=== PATIENT | female | born 1955 | race Caucasian/White ===

== ENCOUNTER 2017-06-17 14:19 | Emergency (ER) | payer OTHER, SELFPAY ==
[2017-06-17 14:19] VITALS: BP 125/75; PULSE 62; RESP 16; TEMP 36.4; O2SAT 98; BMI 29.2
--- NOTE | 2017-06-17 14:44 | CT_ITS ---
STUDY: CT ABDOMEN AND PELVIS WITHOUT CONTRAST REASON FOR EXAM: Female, 61 years old. Suprapubic pain. History of total abdominal hysterectomy and appendectomy. RADIATION DOSAGE (If Supplied By Facility): CTDIvol = ( 12.35 ) mGy, DLP = ( 623.10 ) mGycm TECHNIQUE: Transaxial images were obtained from the dome of the diaphragm to the symphysis pubis without oral contrast, and without intravenous contrast. Sagittal and coronal images were reconstructed. Individualized dose optimization techniques were used for this CT. COMPARISON: None. FINDINGS: The visualized lung bases are unremarkable. The visualized portions of the heart are within normal limits. Normal liver. Normal gallbladder and extrahepatic biliary system. There are multiple benign calcified granulomata of the spleen. Normal pancreas. Normal bilateral adrenal glands. Is mild prominence of the right renal pelvis likely due to extrarenal pelvis. Normal left kidney. There is a small to moderate hiatal hernia which could be sliding hiatal hernia or paraesophageal. The small bowel loops are normal in caliber. There is fecal retention. There is non-visualization of the appendix. There is mild atherosclerotic calcification of the abdominal aorta, without a demonstrated aneurysm. Normal inferior vena cava. Normal retroperitoneum. The bladder is not well-distended. There is absence of the uterus consistent with a prior hysterectomy. There is a very small umbilical hernia containing fat. There is no demonstrated destructive bony process. CT/Abdomen/Pelvis without Cont IMPRESSION: Hiatal hernia. No evidence of small bowel obstruction. Suboptimal evaluation of the distal small bowel loops without oral contrast. Mild prominence of the right renal pelvis likely due to extrarenal pelvis. No evidence of urinary tract stones. Fecal retention. Electronically Signed: Shakir Leigh MD at 15:48 EDT Tel , Service support ,
[2017-06-17 15:00] LABS: Absolute Lymphocyte Count 1.88 X10^3/ul (0.83-4.51); Absolute Neutrophil Count 4.9 X10^3/uL (2.0-7.7); Basophil# 0.04 X10^3/uL; Basophil% 0.5 % (0-1); Eosinophil# 0.12 X10^3/uL; Eosinophils% 1.6 % (0-5); Hematocrit 40.7 % (37-47); Hemoglobin 13.7 g/dl (12.0-15.0); Lymphocyte # 1.88 X10^3/ul (4.0); Lymphocyte % 24.3 % (19-41); Mean Corp Hgb Conc 33.7 g/gl (32-36); Mean Corpuscular Hgb 31.6 pg (27.0-32.0); Mean Platelet Vol. 9.3 fl (6.2-12.0); Monocyte# 0.81 X10^3/uL; Monocyte% 10.5 % (0-10); Neutrophil # 4.88 X10^3/uL (2.7-7.7); Platelet Count 268 K/mm3 (150-450); RBC Distribution Width CV 12.9 % (11.6-14.6); RBC Distribution Width SD 43.4 fl (35.1-43.9); Red Blood Count 4.33 M/mm3 (4.2-5.4); White Blood Count 7.7 K/mm3 (4.4-11.0)
[2017-06-17 15:04] LABS: POSITIVE COUNT NO; POSITIVE DIFFERENTIAL NO; POSITIVE MORPHOLOGY NO
[2017-06-17 15:16] LABS: Anion Gap 7 (5-15); BUN 22 mg/dL (7-18); BUN/Creat Ratio 24.2 RATIO (10-20); Calcium,Total 8.5 mg/dL (8.5-10.1); Chloride 108 mmol/L (98-107); Creatinine, Serum 0.91 mg/dL (0.55-1.02); EST Glomerular Filtration Rate 67 mL/min (>60); Est Glom Filt Rate - Afr Amer 81 mL/min (>60); Estimated Creatinine Clearance 52.65 ml/min; Glucose 82 mg/dL (74-106); Potassium 3.8 mmol/L (3.5-5.1); Sodium Level 140 mmol/L (136-145)
[2017-06-17] MEDS: Ondansetron 4 MG/2 ML Vial IV (15:21)
[2017-06-17] MEDS: 0.9% Normal Saline 1,000 ML 150 ML IV (15:21)
[2017-06-17] MEDS: fentaNYL 100 MCG/2 ML Ampul 12.5 MCG IV (15:21)
[2017-06-17 15:29] LABS: Bacteria 0 SEEN /hpf (None Seen); Mucous, Urine 0 SEEN /hpf (<or=2+); White Blood Cells 0 SEEN /hpf (0-5)
[2017-06-17 15:41] LABS: Color, Urine Yellow (Yellow); Glucose, Dipstick Normal (Normal); Ketone-Dipstick 5 mg/dl (Negative); Leukocyte Esterase-Dipstick Negative /ul (Negative); Nitrite-Dipstick Negative (Negative); Occult Blood-Urine 50 /ul (Negative); Protein-Dipstick Negative (Negative); Urine Bilirubin Dipstick Negative (Negative); Urine Clarity Clear (Clear); Urine Urobilinogen Normal (Normal)
[2017-06-17 15:48] LABS: Red Blood Cells-Urine 0-5 SEEN /hpf (0-5); Squamous Epithelial Cells - UA 0-5 SEEN /hpf (5-10)
--- NOTE | 2017-06-17 15:59 | ED.DCSUM_ITS ---
- ER Visit Summary Date of Service: 06/17/17 Chief Complaint: Low abdominal pain History of Present Illness: The patient is a 61 F with low abdominal pain that started overnight. Patient points to the suprapubic region. She states the pain seems to be worse with upright position and worse with movement. She denies fever, nausea, vomiting, or diarrhea. She denies dysuria. She has no vaginal discharge. She states she had some very mild radiation of pain around her left flank. Physical Examination: Vital signs are unremarkable. Patient sitting upright in bed no acute distress. She is nontoxic appearing. Head neck examination is unremarkable. Heart is regular rate and rhythm. Lung sounds are clear. Abdomen is soft mild suprapubic tenderness. There is no guarding or rebound. Normal bowel sounds are noted. Back examination reveals no midline tenderness and no CVA tenderness. Test Results: CBC and chemistry studies are unremarkable. Urinalysis shows 50 of blood on macroscopic examination and 0-5 RBCs on microscopic exam. CT flank shows hiatal hernia. There is no evidence of small bowel obstruction. There is mild prominence of the right renal pelvis, likely due to extrarenal pelvis. No urinary tract stones are noted. Fecal retention is appreciated. Emergency Department Course and Treatment: Patient was given a small dose of fentanyl along with Zofran and IV fluids. Repeat evaluation she is resting comfortably. We did discuss the possibility of recently passed small kidney stone with the blood in her urine, however no sign of renal stone is noted at this time. Patient will be started on MiraLAX to help with the fecal retention. Treatment Plan: [] Disposition: Discharge Impression: 1. Low abdominal pain 2. Constipation This note was generated with [employer] dictation software. It may contain incorrect words, spelling, and punctuation that were not noted in review of the chart prior to signing ED Disposition - Plan for ED Patient: Disposition: Home or Assisted Living Chief Complaint: Abd Pain Instructions: ED Abdominal Pain Unkn Cause, ED Constipation Prescriptions: Polyethylene Glycol 3350 [Miralax] 17 gm PO DAILY #30 packet Referrals: Peggy Marrufo MD [Primary Care Provider] - 1-2 Weeks
[2017-06-17 16:24] VITALS: BP 118/63; PULSE 59; RESP 16; O2SAT 99
== END 2017-06-17 16:25 | disposition home or self-care (01) ==
PROVIDERS: Emergency Provider Emergency Medicine; Family Provider Internal Medicine; PCP Internal Medicine
DX: R10.30 Lower abdominal pain, unspecified (principal); K59.00 Constipation, unspecified; K44.9 Diaphragmatic hernia without obstruction or gangrene; J45.909 Unspecified asthma, uncomplicated; F32.9 Major depressive disorder, single episode, unspecified; F41.9 Anxiety disorder, unspecified; Z79.899 Other long term (current) drug therapy; Z87.442 Personal history of urinary calculi; Z98.51 Tubal ligation status
CPT/HCPCS: 74176; 80048; 81001; 85025; 96361; 96374; 96375; 99283; J7030; A4216; J2405

== ENCOUNTER 2017-11-29 20:25 | Emergency (ER) | payer OTHER, SELFPAY ==
[2017-11-29 20:26] VITALS: BP 146/73; PULSE 63; RESP 25; TEMP 36.1; O2SAT 99; BMI 29.6
--- NOTE | 2017-11-29 21:16 | CT_ITS ---
STUDY: CT BRAIN WITHOUT CONTRAST REASON FOR EXAM: Female, 62 years old. Headache with nausea and vomiting RADIATION DOSAGE (If Supplied By Facility): CTDIvol = ( 44.99 ) mGy, DLP = ( 1524.73 ) mGycm TECHNIQUE: Transaxial CT imaging of the brain was performed without administration of intravenous contrast material. Individualized dose optimization techniques were used for this CT. COMPARISON: None. FINDINGS: Normal soft tissue structures. Normal calvarium. Normal size ventricles and extra-axial spaces for the patient's age. Mild periventricular white matter ischemic changes.. Normal basal ganglia and thalami. Normal brainstem. Normal cerebellum. There is no intracranial hemorrhage. There are no findings of an acute ischemic infarction. There is mild mucosal thickening of the left maxillary and ethmoid sinuses CT/Brain/Head without Contrast IMPRESSION: Mild periventricular white matter ischemic change. No evidence for acute bleed. If concern for acute infarct MRI recommended Left maxillary and ethmoid sinus disease Electronically Signed: Robb Brannon MD at 22:12 EDT , Service support ,
--- NOTE | 2017-11-29 21:19 | ED.DCSUM_ITS ---
- ER Visit Summary Date of Service: 11/29/17 Chief Complaint: Nausea, vomiting, diarrhea, headache History of Present Illness: The patient is a 62 F nausea and dry heaving for a couple days. Diarrhea started early this morning at 2 AM up to 7:00. Mild abdominal discomfort. Headache since yesterday. No falls or head injuries. Photo and phonophobia. No history of headaches. She is on antibiotics day 5 for horse bite to left shoulder with redness covering for MRSA both Bactrim and Keflex. States his chills and sweats. No urinary symptoms. No chest pains no cough no upper respiratory symptoms. Physical Examination: General: Alert and oriented ?3, mild distress HEENT: Normocephalic, atraumatic. Moist mucosa membranes Neck: supple, nontender. No meningismus Cardiovascular: Regular rate and rhythm, no murmurs Respiratory: Normal breath sounds, symmetric, no distress Abdomen: Soft, nontender, nondistended. Negative Jacobson's or McBurney's tenderness Extremities: Nontender, no edema, pulses intact ?4 Neuro: no focal neurological deficits. Cranial nerves II through XII intact. Test Results: White count 6, hemoglobin 14 creatinine 1.27. Lipase 23. Liver enzymes normal. CT head neck for intracranial process left maxillary and ethmoid sinus disease Emergency Department Course and Treatment: Patient fatigue, mild distress. She had no focal neurologic deficits. With persistent headache with migraine symptoms treated with fluids Reglan and Benadryl. Her headache on reevaluation was improved CT notes sinus disease she denies any sinus symptoms. However she still complained of nausea symptoms. Abdominal labs are normal there is mild renal insufficiency creatinine 1.27. She was hydrated IV fluids. Zofran added , reevaluation symptoms much more improved. She is p.o. challenge. More concerns of symptoms after antibiotics. She will be given prescription of Zofran to use she can take with food. Discussed if antibiotics worsen her symptoms to stop it altogether her rash is improving. Diarrhea subsided over 12 hours ago, lower suspicion for C. difficile concerns. To continue oral hydration follow-up with PCP. Signs and symptoms discussed return. All questions were answered. Treatment Plan: [] Disposition: Discharge Impression: 1. Nausea, vomiting, diarrhea 2. Cephalgia This note was generated with [employer] dictation software. It may contain incorrect words, spelling, and punctuation that were not noted in review of the chart prior to signing ED Disposition - Plan for ED Patient: Disposition: Home or Assisted Living Chief Complaint: General Illness Diagnosis: Nausea vomiting and diarrhea, Cephalgia Instructions: ED Diet Vomiting Diarrhea, ED Cephalgia Unspecified Prescriptions: Ondansetron [Zofran Odt] 4 mg PO Q8H PRN PRN #10 tablet PRN Reason: Nausea Referrals: Peggy Marrufo MD [Primary Care Provider] - 3-5 Days
[2017-11-29 21:35] LABS: Absolute Lymphocyte Count 2.22 X10^3/ul (0.83-4.51); Absolute Neutrophil Count 2.9 X10^3/uL (2.0-7.7); Basophil# 0.08 X10^3/uL; Basophil% 1.3 % (0-1); Eosinophil# 0.08 X10^3/uL; Eosinophils% 1.3 % (0-5); Hematocrit 43.5 % (37-47); Hemoglobin 14.2 g/dl (12.0-15.0); Lymphocyte # 2.22 X10^3/ul (4.0); Lymphocyte % 36.9 % (19-41); Mean Corp Hgb Conc 32.6 g/gl (32-36); Mean Corpuscular Hgb 30.5 pg (27.0-32.0); Mean Corpuscular Volume 93.5 fL (81-99); Mean Platelet Vol. 9.9 fl (6.2-12.0); Monocyte# 0.74 X10^3/uL; Monocyte% 12.3 % (0-10); Neutrophil # 2.88 X10^3/uL (2.7-7.7); Platelet Count 316 K/mm3 (150-450); RBC Distribution Width CV 13.3 % (11.6-14.6); RBC Distribution Width SD 45.4 fl (35.1-43.9); Red Blood Count 4.65 M/mm3 (4.2-5.4)
[2017-11-29 21:37] LABS: POSITIVE COUNT NO; POSITIVE DIFFERENTIAL NO; POSITIVE MORPHOLOGY NO
[2017-11-29] MEDS: 0.9% Normal Saline 1,000 ML 1000 ML IV (21:39)
[2017-11-29] MEDS: Metoclopramide 10 MG/2 ML Vial IV (21:39)
[2017-11-29] MEDS: DiphenhydrAMINE 50 MG/ML Syringe 25 MG IV (21:39)
[2017-11-29 21:43] LABS: ALB/GLOB Ratio 0.9 RATIO (0.9-2.4); AST(SGOT) 12 U/L (15-37); Alanine Aminotransfer ALT/SGPT 16 U/L (13-56); Albumin, Serum 3.5 g/dL (3.2-5.0); Alkaline Phosphatase 59 U/L (45-117); Anion Gap 14 (5-15); BUN 18 mg/dL (7-18); BUN/Creat Ratio 14.2 RATIO (10-20); Calcium,Total 8.8 mg/dL (8.5-10.1); Chloride 109 mmol/L (98-107); Creatinine, Serum 1.27 mg/dL (0.55-1.02); EST Glomerular Filtration Rate 46 mL/min (>60); Est Glom Filt Rate - Afr Amer 55 mL/min (>60); Estimated Creatinine Clearance 37.26 ml/min; Glucose 95 mg/dL (74-106); Lipase 183 U/L (73-393); Protein, Total 7.5 g/dL (6.4-8.2); Sodium Level 141 mmol/L (136-145)
[2017-11-29] MEDS: Ondansetron 4 MG/2 ML Vial IV (22:48)
[2017-11-29] MEDS: 0.9% Normal Saline 1,000 ML 150 ML IV (22:48)
[2017-11-29 23:37] VITALS: BP 123/61; PULSE 69; RESP 16; O2SAT 98
[2017-11-29 23:43] VITALS: BP 123/61; PULSE 69; RESP 16; O2SAT 98
== END 2017-11-29 23:44 | disposition home or self-care (01) ==
PROVIDERS: Emergency Provider Emergency Medicine; Family Provider Internal Medicine; PCP Internal Medicine
DX: R11.2 Nausea with vomiting, unspecified (principal); R19.7 Diarrhea, unspecified; R51 Headache; N28.9 Disorder of kidney and ureter, unspecified; Z79.899 Other long term (current) drug therapy; Z87.442 Personal history of urinary calculi
CPT/HCPCS: 70450; 80053; 83690; 85025; 96361; 96374; 96375; 99284; J7030; A4216; J2405

== ENCOUNTER 2018-08-05 11:47 | Emergency (ER) | payer OTHER, SELFPAY ==
[2018-08-05 11:49] VITALS: BP 118/62; PULSE 58; RESP 16; TEMP 36.5; O2SAT 97; BMI 30.7
--- NOTE | 2018-08-05 12:04 | ED.VISSUMM ---
- ER Visit Summary Date of Service: 08/05/18 Chief Complaint: Right foot pain History of Present Illness: The patient is a 63 F who presents with right foot pain that started yesterday. Patient states she was wearing a pair of flip-flops and noted increasing pain to the bottom of her right foot as the day went on. Today she is hardly able to weight-bear. She does have a known history of heel spurs. Physical Examination: Vital signs unremarkable. Patient sitting upright in bed no acute distress. Right lower extremity examination was tenderness along the plantar surface of the calcaneus of the right foot. Strong pulses are noted. No erythema or ecchymosis. No pain posteriorly along the Achilles insertion site. Test Results: Right foot x-rays do reveal plantar heel spur but no acute fracture. Emergency Department Course and Treatment: Patient's foot is wrapped in an Renard wrap. She will be given naproxen and prednisone. She will be referred to podiatry if not improving. Treatment Plan: [] Disposition: Discharge Impression: Right foot plantar fasciitis This note was generated with [employer] dictation software. It may contain incorrect words, spelling, and punctuation that were not noted in review of the chart prior to signing ED Disposition - Plan for ED Patient: Disposition: Home or Assisted Living Instructions: ED Plantar Fasciitis, ED Heel Spur Prescriptions: Naproxen [Naprosyn] 500 mg PO BID PRN PRN #20 tablet PRN Reason: Pain Prednisone 10 mg PO UD #33 tablet Referrals: Peggy Marrufo MD [Primary Care Provider] - Lorie Ricardo DPM [STAFF PHYSICIAN] - As Needed
--- NOTE | 2018-08-05 12:21 | RAD_ITS ---
STUDY: X-RAY - RIGHT FOOT CLINICAL: Female, 63 years old. Pain TECHNIQUE: 3 view(s) of the foot. COMPARISON: None. FINDINGS: Normal talus, calcaneus, and tarsal bones. Plantar calcaneal spurring. Normal visualized subtalar, talonavicular, calcaneocuboid, tarsal and tarsometatarsal articulations. Normal metatarsi. Normal metatarsophalangeal joint of the great toe. Normal tibial and fibular sesamoid bones. Normal interphalangeal joint of the great toe. Normal phalanges of the great toe. Normal second through fifth metatarsophalangeal joints. Normal interphalangeal joints and phalanges of the lesser toes. The soft tissue structures are unremarkable. RAD/Foot min 3 Views IMPRESSION: Calcaneal spurring of the foot. Electronically Signed: Hernando Osborn DO at 13:08 EDT Tel [phone], Service support ,
[2018-08-05] MEDS: predniSONE 20 MG Tablet 60 MG PO (13:00)
[2018-08-05] MEDS: Naproxen 500 MG Tablet PO (13:01)
== END 2018-08-05 13:06 | disposition home or self-care (01) ==
PROVIDERS: Emergency Provider Emergency Medicine; Family Provider Internal Medicine; PCP Internal Medicine
DX: M72.2 Plantar fascial fibromatosis (principal); M77.31 Calcaneal spur, right foot; Z79.899 Other long term (current) drug therapy
CPT/HCPCS: 73630; 99283